=== PATIENT | female | born 1985 | race Caucasian/White ===

== ENCOUNTER → 2022-12-22 | Outpatient (CLI) | payer MEDICAID ==
[~2022-12-22] MED LIST: AC500T PO; DCS100C PO; FRS325T PO; HYDR-3454 PO; IBUP-30 PO; MULT-974 PO; OXYC-12 PO; PNV1TABL9; TRAM50TA2 PO
--- NOTE | 2022-12-22 13:42 | Diagnostic Imaging Report ---
INDICATION: Scoliosis. EXAMINATION: Scoliosis, standing examination of the spine, 12/22/2022. FINDINGS: Two frontal views of the spine. No single view of the entire spine is provided limiting evaluation for appropriate measurement. An approximate measurement is from the superior endplate of T7 to the inferior endplate of L2, there is a levoconvex 12 degree scoliotic deformity. No vertebral body anomaly is appreciated. IMPRESSION: 1. 12 degree levoconvex scoliosis of the thoracolumbar spine. Dictated by: Dictated on workstation # [id number]
== END ==
LOC: RAD 12:41
PROVIDERS: ATTEND Physician Assistant
DX: M41.85 Other forms of scoliosis, thoracolumbar region (principal)
CPT/HCPCS: 72081